=== PATIENT | female | born 1985 | race Caucasian/White ===

== ENCOUNTER 2022-12-30 19:34 | Outpatient (CLI) | payer BC, SELFPAY ==
--- NOTE | 2023-01-10 08:58 | W.PM.SLEEP ---
Sleep Study Details Details Interpreting Provider: Oh Date of Sleep Study: 12/30/22 Sleep Study Details: STUDY TYPE:? Home BMI:? 31.6 ORDERING PROVIDER:? Oh INDICATION:? Concerns about sleep apnea ? SLEEP SUMMARY:? 491.5 minutes monitored RESPIRATORY SUMMARY:? AHI 6.6, supine 8.6, right lateral 4.8 Low oxygen 87 0.2% of the study oxygen less than 90% Snoring 5.8% PERIODIC LIMB MOVEMENTS OF SLEEP:? Not recorded CARDIAC:? Range 54-97, mean 67.4 IMPRESSION:? Mild obstructive sleep apnea with supine position dependency RECOMMENDATION: Treatment options include CPAP AutoSet, dental appliance and/or airway expansion surgery.
== END 2022-12-30 19:35 | disposition home or self-care (01) ==
PROVIDERS: PCP Family Medicine; Visit Provider Otolaryngology
DX: G47.33 Obstructive sleep apnea (adult) (pediatric) (principal)
CPT/HCPCS: 95806

== ENCOUNTER 2023-03-10 10:05 | Day surgery (SDC) | payer BC, SELFPAY ==
[2023-03-10] VITALS (14 sets, daily range): BP systolic 117–137; BP diastolic 65–80; PULSE 51–66; RESP 16–20; TEMP 36.2–36.7; O2SAT 96–98; BMI 32.1
[2023-03-10] MEDS: LACTATED RINGERS 1000 ML 1,000 ML 100 ML IV (10:15)
[2023-03-10] MEDS: SODIUM CHLORIDE 0.9 % (FLUSH) 10 ML SYRINGE IVF (10:24)
[2023-03-10 10:40] LABS: Ur HCG Qualitative* Negative (Negative)
[2023-03-10] MEDS: SCOPOLAMINE 1 MG/3 DAY PATCH 1 PATCH TRANSDERMA (10:43)
[2023-03-10] MEDS: OXYMETAZOLINE 0.05% NASAL SPRAY 2 SPRAY NOSTRIL-B (11:02)
[2023-03-10] MEDS: COCAINE HCL 4 % 4 ML SOLUTION NOSTRIL-B (11:54)
--- NOTE | 2023-03-10 11:56 | SUR.OPER ---
PATIENT QUESTIONS ANSWERED SATISFACTORILY PREOPERATIVELY. PATIENT BROUGHT TO OR #1 PER CART. Patient positioned supine on OR #1 bed. Perioperative team tucked arms bilaterally at patient side with drawsheet. Final approval of positioning by surgeon.
[2023-03-10] MEDS: BUPIVACAINE 0.5%/EPINEPHRINE 0.9 MG (30.9 ML) INJECTION (12:00)
[2023-03-10] MEDS: AYR SALINE NASAL GEL 1 APPLIC NOSTRIL-B (12:01)
[2023-03-10] MEDS: MUPIROCIN 1 GM PACKET 1 APPLIC TOPICAL (12:04)
--- NOTE | 2023-03-10 12:04 | SUR.OPER ---
SURGEON DECLINES OFFER TO SEND EXCISED TISSUES TO PATHOLOGY.
--- NOTE | 2023-03-10 12:21 | W.ANESCHARGE ---
Anesthesia Charges Start Date/Time Anesthesia Start Date: 03/10/23 Anesthesia Start Time: 11:40 Stop Date/Time Anesthesia Stop Date: 03/10/23 Anesthesia Stop Time: 12:18
[2023-03-10] MEDS: fentaNYL 100 MCG/2 ML inj 50 MCG IVP ×2 (12:24→12:45)
--- NOTE | 2023-03-10 12:50 | W.PM.ENTPROC ---
Procedure Note Date of procedure: 03/10/23 Procedure: Preoperative diagnosis nasal obstruction nasal headache bilateral middle turbinate jessica bullosa, deviated septum, inferior turbinate hypertrophy Postoperative diagnosis same Procedure septoplasty, submucous partial resection inferior turbinates, bilateral endoscopic partial resection middle turbinate jessica bullosa Under general endotracheal anesthesia patient was prepped and draped in usual fashion and nose injected and decongested. Incision was made in the septal mucosa on the right side anterior to the deflection which is an area 3 4. Mucosa overlying this was elevated. The Salinas dissector was used to cut through the cartilage and elevated a tunnel on the opposite side. The deflected portions of septal bone and cartilage were resected. A large piece was trimmed and returned to intraseptal space. The flap was then just laid down. A stab incision was made in the anterior head of the right inferior turbinate a tunnel created with a Salinas dissector. The jessica bone was outfractured and a conservative anterior submucous resection was performed. The Coblation was used for hemostasis and to cauterize the inferior 10% intramurally. This was repeated on the left side in identical fashion. Remainder procedure was done with the available assistance of a 0 degree endoscope. The right middle turbinate jessica bullosa was incised along its lateral aspect with the incision carried into the hollow portion of the jessica bone. The turbinate was then crushed with the Jadon forceps. This was repeated on the left side in identical fashion. Merocel packing coated in Bactroban was placed on each side of the nose just beneath the middle turbinates. The patient procedure well was taken to recovery in satisfactory condition. Blood loss was less than 50 mL. Note that in recovery patient had somewhat excessive bleeding but not terrible. I would then placed I a dissolvable pack beneath the Merocel. Surgeon: Giorgio Green MD
[2023-03-10] MEDS: OXYCODONE 5 MG TABLET PO (13:08)
[2023-03-10] MEDS: ACETAMINOPHEN 325 MG TABLET PO (13:08)
== END 2023-03-10 14:02 | disposition home or self-care (01) ==
PROVIDERS: Nurse Anesthetist, Certified Registered; PCP Family Medicine; Visit Provider Otolaryngology
PROC: (CPT 31231; principal; 2023-03-10 11:30)
DX: J34.2 Deviated nasal septum (principal); J34.3 Hypertrophy of nasal turbinates; R51.9 Headache, unspecified; J34.89 Other specified disorders of nose and nasal sinuses
CPT/HCPCS: 30520; 30140; 31240; 00160; 81025; A9270; J0330; J1100; J2250; J2405; J3010; J7120

== ENCOUNTER 2024-06-21 12:09 | Outpatient (CLI) | payer BC, SELFPAY ==
--- NOTE | 2024-06-21 12:15 | CRLHL7_ITS ---
For Patients: As a result of the Century Cures Act, medical imaging exams and procedure reports are released immediately into your electronic medical record. You may view this report before your referring provider. If you have questions, please contact your health care provider. INDICATION: r/o ovarian cysts COMPARISON: none TECHNIQUE: 2D lsater scale and color Doppler images were acquired of the pelvis using a transabdominal and transvaginal approach. FINDINGS: Sonographic images demonstrate a normal size and smooth outer contour of the uterus. Uterus measures 7.3 cm in length by 2.3 cm in AP diameter by 3.7 cm in transverse dimension. Bicornuate uterus. Right endometrium measures 1 millimeter. Left endometrium measures 2 millimeters. The right ovary is not visualized and the left ovary measures 3.8 x 1.6 x 2.8 cm. The left ovary demonstrates normal arterial and venous blood flow on color Doppler analysis. There are no suspicious fluid collections within the cul-de-sac. Simple left ovarian cyst is present measuring 2.7 x 1.0 x 1.2 cm. IMPRESSION: Simple left ovarian cyst measures 2.7 cm. Right ovary not visualized. Dictated by Johnie Park MD @ 06/21/2024 1:19:15 PM (Electronically Signed)
== END 2024-06-21 12:10 | disposition home or self-care (01) ==
LOC: US 12:11
PROVIDERS: PCP Family Medicine; Visit Provider Obstetrics & Gynecology
DX: N83.292 Other ovarian cyst, left side (principal); Z87.42 Personal history of other diseases of the female genital tract
CPT/HCPCS: 76830; 76856; 93976

== ENCOUNTER 2024-07-16 06:04 | Day surgery (SDC) | payer BC, SELFPAY ==
[2024-07-16] VITALS (12 sets, daily range): BP systolic 93–130; BP diastolic 40–83; PULSE 47–69; RESP 16; TEMP 36.1–36.4; O2SAT 92–96; BMI 31.0
[2024-07-16 06:39] LABS: Ur HCG Qualitative* Negative (Negative)
[2024-07-16] MEDS: 0.9 % SODIUM CHLORIDE 500 ML 500 ML 100 ML IV (06:52)
[2024-07-16 06:54] LABS: Hemoglobin* 13.6 gm/dL (12.0-16.0)
[2024-07-16] MEDS: SODIUM CHLORIDE 0.9 % (FLUSH) 10 ML SYRINGE IVF (06:58)
[2024-07-16] MEDS: SCOPOLAMINE 1 MG/3 DAY PATCH 1 PATCH TRANSDERMA (06:58)
--- NOTE | 2024-07-16 07:02 | W.PM.H&PU ---
History & Physical Update History & Physical Update H&P Reviewed and patient assessed: No changes noted
--- NOTE | 2024-07-16 07:03 | P.PCN_ITS ---
Procedure Note Time Seen by Provider: 08:16 Date Seen: 07/16/24 Provider Contact Time: 08:16 Date of procedure: 07/16/24 Will [facility] bill your pro fee for this procedure?: Yes Procedure: Preoperative diagnosis: 39-year-old with dysmenorrhea, dyspareunia and chronic pelvic pain. Postoperative diagnosis: Same. Procedure: Diagnostic laparoscopy Anesthesia: General endotracheal, local Surgeon: Patricia Tello MD Cleaner Assistant: Kirsty Saucedo MD EBL: 3 mL Urine output: 500 mL clear urine IVF: 200 ml Specimen: None Findings: On exam under anesthesia: The uterus was anteverted, less than 10 week size, mobile, without masses or nodularity palpable. Adnexa were without mass or fullness bilaterally. The uterus sounded to 10 cm. On laparoscopy: The uterus head in exophytic fundal fibroid measuring less than 1 cm in diameter time. The right ovary had a physiologic, 2 cm, simple cyst consistent with ovulation. The left ovary was normal in appearance without a cyst. There was no evidence of endometriosis. Normal liver and appendix. Procedure: Patient was taken to the operating room where general anesthetic was found to be adequate. She was placed in the dorsal lithotomy position and an exam under anesthesia was performed with findings stated above. She was then prepped and draped in a normal sterile manner. A Boyle catheter was then placed. A bivalve speculum was then placed in the vaginal canal to visualize the cervix. The anterior lip of the cervix was grasped with an a long Allis clamp. The cervix was dilated to Hegar 6. Uterus was sounded to 10 cm. A [place] uterine m anipulator was then placed. Attention was then turned to performing the laparoscopic portion of the procedure. All incisions were injected with 0.5% Marcaine prior to incision. A vertical 5 mm infraumbilical, incision, was made and a 5 mm trocar placed under direct visualization with the laparoscope. The abdomen was then insufflated with carbon dioxide gas to a pressure of 15 mm of mercury. A left lower quadrant trocar was then placed under direct visualization. It was placed approximately 3-4 finger breaths medial to the ischial crests. A diagnostic laparoscopy was then performed with findings stated above. The trocars were then removed under direct visualization. The CO2 gas was allowed to escape the infraumbilical port prior to its removal. All incisions were reapproximated using 4-0 Monocryl in a running subcuticular manner. Exofin skin adhesive was then applied to each incision. The uterine manipulator and Boyle catheter were removed. The patient tolerated this procedure well. Sponge, lap and instrument counts were correct x2 at the end of the procedure and the patient was taken to the recovery area in stable condition.
[2024-07-16] MEDS: BUPIVACAINE 0.5% 30 ML INJECTION (08:04)
--- NOTE | 2024-07-16 08:24 | W.ANESCHARGE ---
Anesthesia Charges Start Date/Time Anesthesia Start Date: 07/16/24 Anesthesia Start Time: 07:20 Stop Date/Time Anesthesia Stop Date: 07/16/24 Anesthesia Stop Time: 08:24
[2024-07-16] MEDS: fentaNYL 100 MCG/2 ML inj 50 MCG IVP ×2 (08:28→08:38)
[2024-07-16] MEDS: ACETAMINOPHEN 500 MG TABLET 1000 MG PO (09:15)
[2024-07-16] MEDS: HYDROmorphone 0.5 mg/0.5 ml inj IVP (09:15)
== END 2024-07-16 10:16 | disposition home or self-care (01) ==
PROVIDERS: PCP Family Medicine; Visit Provider Obstetrics & Gynecology
PROC: (CPT 49320; principal; 2024-07-16 07:15)
DX: N94.6 Dysmenorrhea, unspecified (principal); N94.10 Unspecified dyspareunia; R10.2 Pelvic and perineal pain; G89.29 Other chronic pain; D25.9 Leiomyoma of uterus, unspecified; N83.291 Other ovarian cyst, right side
CPT/HCPCS: 49320; 00840; 36415; 81025; 85018; 86850; 86900; 86901; A9270; J0665; J1100; J1171; J1630; J2405; J2704; J2710; J3010; J7030

== ENCOUNTER 2024-12-05 15:27 | Outpatient (CLI) | payer BC, SELFPAY ==
[2024-12-05 19:27] LABS: Chlamydia DNA Amplified* NOT DETECTED (No Detected); GC DNA Amplified* NOT DETECTED (No Detected)
== END 2024-12-05 15:28 | disposition home or self-care (01) ==
PROVIDERS: PCP Family Medicine; Visit Provider Obstetrics & Gynecology
DX: Z11.3 Encounter for screening for infections with a predominantly sexual mode of transmission (principal); Z11.59 Encounter for screening for other viral diseases; Z11.4 Encounter for screening for human immunodeficiency virus [HIV]
CPT/HCPCS: 86592; 86703; 86706; 86803; 87340; 87491; 87591

== ENCOUNTER 2025-02-04 16:00 | Outpatient (RCR) | payer BC, SELFPAY | END 2025-03-12 12:17 | disposition home or self-care (01) | PROVIDERS: PCP Family Medicine; Visit Provider Obstetrics & Gynecology | DX: R10.2 Pelvic and perineal pain (principal); M54.50 Low back pain, unspecified; N94.10 Unspecified dyspareunia; N94.6 Dysmenorrhea, unspecified; M25.551 Pain in right hip; Z51.89 Encounter for other specified aftercare | CPT/HCPCS: 97110; 97140; 97161; 97530 ==

== ENCOUNTER 2025-04-10 09:54 | Day surgery (SDC) | payer BC, SELFPAY ==
[2025-04-10] VITALS (11 sets, daily range): BP systolic 121–144; BP diastolic 73–92; PULSE 59–98; RESP 14–20; TEMP 36.8; O2SAT 98–100; BMI 30.4
[2025-04-10] MEDS: lidocaine HCL 2 % MULTIDOSE 20 ML VIAL INJECTION (11:57)
[2025-04-10] MEDS: BUPIVACAINE 0.5% 30 ML INJECTION (11:57)
--- NOTE | 2025-04-10 12:36 | P.ORPRC_ITS ---
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 Despite appropriate nonoperative management they continue to have symptoms. Operative intervention was recommended. The risks, benefits alternatives and expected outcomes were discussed in detail. These included but were not limited to: Infection, bleeding, injury to blood vessel or nerve, venous thromboembolism. All questions were answered to their satisfaction. The patient was placed supine on the operating room table. A digital block was established with 0.5% Marcaine without epinephrine and 2% lidocaine without epinephrine. The hand was prepped and draped in usual sterile fashion. The limb was elevated, the forearm pneumatic tourniquet was inflated to 200 mmHg. An oblique incision was made over the volar aspect of the base of the ring finger, proximal to the MP joint flexion crease. Subcutaneous dissection was taken with the tenotomy scissors to the flexor tendons. The ganglion cyst was encountered on the radial side of the A2 keely. It was carefully dissected off of the keely and followed proximally and distally. Care was taken not to disrupt the keely. The wound was irrigated with normal saline. It was closed with a 3-0 nylon. A dry dressing was applied, sponge and needle counts were correct x 2. The patient tolerated the procedure well, there were no apparent complications. They were sent to same day surgery in satisfactory condition. Plan: Use of the hand as tolerates. Discontinue the intraoperative dressing on postoperative day 3 and may get the wound wet as tolerates. Follow up in the office in 2 weeks for a wound check and suture removal.
== END 2025-04-10 12:42 | disposition home or self-care (01) ==
PROVIDERS: PCP Family Medicine; Visit Provider Orthopaedic Surgery
PROC: (CPT 26160; principal; 2025-04-10 11:15)
DX: M67.441 Ganglion, right hand (principal)
CPT/HCPCS: 26160; J0665

== ENCOUNTER 2025-06-24 07:25 | Outpatient (CLI) | payer BC, SELFPAY | END 2025-06-24 07:26 | disposition home or self-care (01) | LOC: NFLDREF 06-26 09:52 | PROVIDERS: PCP Family Medicine; Referring Provider Family Medicine; Visit Provider Family Medicine | DX: R53.83 Other fatigue (principal); Z13.6 Encounter for screening for cardiovascular disorders | CPT/HCPCS: 80053; 80061; 84443 ==